=== PATIENT | male | born 1995 ===

== ENCOUNTER 2021-09-14 14:13 | Emergency (ER) | payer OTHER | END 2021-09-14 16:30 | disposition home or self-care (01) | LOC: ER1 14:13 | DX: J06.9 Acute upper respiratory infection, unspecified (principal); I10 Essential (primary) hypertension; Z88.0 Allergy status to penicillin; Z20.822 Contact with and (suspected) exposure to COVID-19 | CPT/HCPCS: 0240U; 99283 ==